=== PATIENT | female | born 1960 | race Caucasian/White ===

== ENCOUNTER → 2023-02-03 | Outpatient (CLI) | payer OTHER, SELFPAY | END | disposition home or self-care (01) | PROVIDERS: Referring Provider Ophthalmology; Visit Provider Ophthalmology | DX: H04.121 Dry eye syndrome of right lacrimal gland (principal) | CPT/HCPCS: 36415 ==

== ENCOUNTER → 2023-06-21 | Outpatient (CLI) | payer OTHER, SELFPAY ==
[2023-06-21 10:05] LABS: SERUM TEARS COLLECTION SPECIMEN PROCESSED
== END | disposition home or self-care (01) ==
LOC: LAB 08:04
PROVIDERS: Visit Provider Ophthalmology
DX: H04.121 Dry eye syndrome of right lacrimal gland (principal)

== ENCOUNTER → 2023-11-17 | Outpatient (CLI) | payer OTHER, SELFPAY ==
[2023-11-17 10:00] LABS: SERUM TEARS COLLECTION SPECIMEN PROCESSED
== END | disposition home or self-care (01) ==
PROVIDERS: Referring Provider Ophthalmology; Visit Provider Ophthalmology
DX: H16.141 Punctate keratitis, right eye (principal)

== ENCOUNTER → 2024-04-12 | Outpatient (CLI) | payer SELFPAY ==
[2024-04-12 14:01] LABS: SERUM TEARS COLLECTION SPECIMEN PROCESSED
== END | disposition home or self-care (01) ==
PROVIDERS: Referring Provider Ophthalmology; Visit Provider Ophthalmology
DX: H16.141 Punctate keratitis, right eye (principal)